=== PATIENT | male | born 1965 | race Caucasian/White ===

== ENCOUNTER 2017-01-23 21:57 | Emergency (ER) | payer MEDICAID ==
[2017-01-23] MEDS ORDERED: POLYMYXIN B SULF/TRIMETHOPRIM 10ML BTL OPTH SCH (22:45)
--- NOTE | 2017-01-23 22:45 | Emergency Department Record ---
History of Present Illness - General Chief complaint: Eye Problem Stated complaint: LT EYE IRRATATION Time Seen by Provider: 01/23/17 22:36 Source: Patient Mode of Arrival: Ambulatory Limitations: No limitations Travel/Exposure to [facility] [place] Within 21 Days of Symptoms: No - History of Present Illness Initial comments: 51 yo male presents to ED for evaluation of intermittent left eye irritation and FB sensation for 1 week. Patient reports that his symptoms began 1 week ago after working outdoors mowing and cutting down bushes for a fence, reported that he had the sensation of a FB to the left eye. Patient went to the Urgent Care, no FB was found. Patient was started on an eye drop for irritation, and the patient has been taking Claritan that has helped until tonight when his symptoms reoccurred. Patient denies change in vision, and reports numerous episodes of previous metallic FBs requiring burring to remove. Onset/Timin -: Week(s) Onset Description: Gradual Location: Left eye Place: Street/outdoors Eye Symptoms: Redness Severity: Moderate Consistency: Intermittent Context: Injury Treatments Prior to Arrival: OTC eye drops - Related Data Home Medications Medication Instructions Recorded Confirmed Last Taken Sulfacetamide Sodium [Bleph-10] 1 - 2 drop AFFEYE Q6H 01/23/17 01/23/17 Unknown Allergies Allergy/AdvReac Type Severity Reaction Status Date / Time No Known Drug Allergies Allergy Verified 01/23/17 22:30 Travel Screening - Travel/Exposure Within Last 30 Days Have you traveled within the last 30 days?: No Review of Systems Constitutional: Denies: Chills, Fever, Malaise, Night sweats Eyes: Reports: Eye pain. Denies: Eye discharge, Photophobia, Vision change ENT: Denies: Congestion, Ear pain, Epistaxis Respiratory: Denies: Cough, Dyspnea Cardiovascular: Denies: Chest pain, Dyspnea on exertion Endocrine: Denies: Fatigue, Heat or cold intolerance Gastrointestinal: Denies: Abdominal pain, Nausea, Vomiting Genitourinary: Denies: Incontinence, Retention Musculoskeletal: Denies: Arthralgia, Back pain, Gout, Joint swelling Skin: Denies: Bruising, Change in color Neurological: Denies: Abnormal gait, Confusion, Headache, Seizure Psychiatric: Denies: Anxiety Hematological/Lymphatic: Denies: Anemia, Blood Clots Past Medical History - SOCIAL HISTORY Smoking Status: Never smoker Alcohol Use: None Drug Use: None - RESPIRATORY Hx Respiratory Disorders: No - CARDIOVASCULAR Hx Cardio Disorders: No - NEURO Hx Neuro Disorders: No - GI Hx GI Disorders: No - Hx Genitourinary Disorders: No - ENDOCRINE Hx Endocrine Disorders: No - MUSCULOSKELETAL Hx Musculoskeletal Disorders: No - PSYCH Hx Psych Problems: No - HEMATOLOGY/ONCOLOGY Hx Hematology/Oncology Disorders: No Family Medical History Any Significant Family History?: No Physical Exam - General General Appearance: Alert, Oriented x3, Cooperative, No acute distress Limitations: No limitations - Head Head exam: Atraumatic, Normocephalic, Normal inspection Head exam detail: negative: Abrasion, Contusion, Zhang's sign, General tenderness, Hematoma, Laceration - Eye Eye exam: Conjunctival injection. negative: Periorbital swelling, Periorbital tenderness, Scleral icterus - ENT Ear exam: negative: Auricular hematoma, Auricular trauma Nasal Exam: negative: Active bleeding, Discharge, Dried blood, Foreign body Mouth exam: negative: Drooling, Laceration, Muffled voice, Tongue elevation - Neck Neck exam: Normal inspection. negative: Meningismus, Tenderness - Respiratory Respiratory exam: Normal lung sounds bilaterally. negative: Rales, Respiratory distress, Rhonchi, Stridor - Cardiovascular Cardiovascular Exam: Regular rate, Normal rhythm, Normal heart sounds - GI/Abdominal GI/Abdominal exam: Soft. negative: Rebound, Rigid, Tenderness - Rectal Rectal exam: Deferred - exam: Deferred - Extremities Extremities exam: Normal inspection. negative: Calf tenderness, Pedal edema, Tenderness - Back Back exam: Denies: CVA tenderness (R), CVA tenderness (L) - Neurological Neurological exam: Alert, Normal gait, Oriented X3 - Psychiatric Psychiatric exam: Normal affect, Normal mood - Skin Skin exam: Normal color. negative: Abrasion Type of lesion: negative: abrasion Course Vital Signs 01/23/17 22:26 Temperature 98.3 F Pulse Rate [ 78 Pulse Ox Probe] Respiratory 20 Rate Blood Pressure 140/108 [Left Arm] Pulse Ox 97 - Reevaluation(s) Reevaluation #1: 01/23/17 22:55 Following alcaine anesthesia to the left eye, staining and visualization with Wood's lamp was performed, no FB or corneal abrasion was identified. Lids were everted, small piece of tissue was removed from the lateral upper lid, no other FB was identified. Patient has an appointment with his eye doctor tomorrow as well, will initiate treatment with polymyxin for probable conjunctivitis. Patient is otherwise well appearing and stable for discharge at this time. Disposition Disposition: Discharge Clinical Impression: Conjunctivitis Qualifiers: Conjunctivitis type: unspecified Laterality: left Qualified Code(s): H10.9 - Unspecified conjunctivitis Disposition: Home, Self-Care Condition: (2) Stable Instructions: Conjunctivitis (ED) Additional Instructions: Return to ED if your symptoms worsen or if you have any concerns. Polymyxin eye drops as directed. Follow-up with your eye doctor as scheduled tomorrow. Forms: Patient Portal Access Time of Disposition: 22:44 Quality - Quality Measures Quality Measures: N/A - Blood Pressure Screening Does Patient Have Any of the Following: No Blood Pressure Classification: Hypertensive Reading Systolic Measurement: 140 Diastolic Measurement: 108 Screening for High Blood Pressure: < First Hypertensive BP, F/U Documented > [ [id number]] First Hypertensive Follow-up Interventions: Referral to alternative/primary care provider.
== END 2017-01-23 23:05 | disposition home or self-care (01) ==
LOC: ER 21:57
DX: S00.252A Superficial foreign body of left eyelid and periocular area, initial encounter (principal); H10.9 Unspecified conjunctivitis; X58.XXXA Exposure to other specified factors, initial encounter; Y93.H2 Activity, gardening and landscaping; Y92.410 Unspecified street and highway as the place of occurrence of the external cause
CPT/HCPCS: 65205; 99283